=== PATIENT | male | born 1990 | race Caucasian/White ===

== ENCOUNTER 2018-12-01 14:06 | Emergency (ER) | payer OTHER ==
[~2018-12-01] VITALS: Ht 182.9 cm; Wt 87.7 kg
[2018-12-01] MEDS ORDERED: CYCL10TA PO (15:58)
[2018-12-01] MEDS ORDERED: IBUP-1022 PO (15:58)
[2018-12-01 16:03] VITALS: BP 140/67
== END 2018-12-01 16:10 | disposition home or self-care (01) ==
LOC: M ED 14:06
DX: S39.012A Strain of muscle, fascia and tendon of lower back, initial encounter (principal); X58.XXXA Exposure to other specified factors, initial encounter; Y92.89 Other specified places as the place of occurrence of the external cause